=== PATIENT | female | born 1945 | race Caucasian/White ===

== ENCOUNTER → 2016-04-30 | Outpatient (CLI) | payer OTHER ==
[~2016-04-30] VITALS: Ht 160 cm; Wt 56.2 kg
[~2016-04-30] MED LIST: ADDERALL; ADDERALL 10 MG10 MG PO; ADDERALL 20 MG20 M1 PO; ATIVAN1 MG PO; BUTRANS1 EAC2 TD; BUTRANS1 EAC3 TD; BYSTOLIC 5 MG5 M1 PO; CALCIUM 500 +1 EAC5; CLONAZEPAM 0.50.5 M1 PO; COQ1050 MG; DILAUDID 2 MG TA2 MG PO; DOMPERIDONE PO; GABAPENTIN 100100 MG PO; HYDRALAZINE 2525 MG PO; LASIX 20 MG TAB20 MG; LEVAQUIN 500 M500 M2 PO; LORAZEPAM 1 MG T1 M1 PO; METOCLOPRAMIDE10 MG PO; MOBIC15 MG PO; MOBIC7.5 MG PO; MULTIVITAMINS; OMEGA-31000 M1; ONDANSETRON HCL4 M2 PO; PANTOPRAZOLE SO40 M1 PO; PILOCARPINE HCL5 M1 PO; PRILOSEC 20 MG20 MG PO; PROTONIX40 M1 PO; REGLAN 10 MG TA10 MG PO; SUMATRIPTAN SU100 MG PO; TIZANIDINE HCL 22 M1 PO; TOPAMAX 25 MG T25 M1 PO; TOPAMAX50 MG PO; VITAMIN D1000 UNI1; VOLTAREN GEL 1100 G2 TOP; WELLBUTRIN SR100 MG PO; WELLBUTRIN SR150 MG PO; XANAX1 MG PO; ZANAFLEX4 MG PO
--- NOTE | ~2016-04-30 | HPC ---
[facility] [place] [address] [address] [place] [address] PAIN MANAGEMENT CONSULTATION Name: TEDKEN FLORESCE Room #: REG [facility] John#: [id number] Admission: 04/30/16 Attend Phys: Gordy Horn DO Discharge: Date of : 45 Report #: [id number] THIS REPORT FOR: //name// CC: Ming Horn The patient is a 70-year-old female well known to pain clinic, typically treated for cervical radiculopathy status post decompressive laminectomy and neuropathic pain requiring complex medication management, history of left shoulder pain at last office visit 03/19/2016, recent diagnosis of sacral insufficiency fracture. Returns to pain clinic today. She notes pain is improving. She started doing water therapy for core stabilization and improved functional status, status post sacral insufficiency fracture. Status post left shoulder arthroplasty. Range of motion remains modestly diminished. Rates the pain about 6/10. Taking hydromorphone 2 mg 2 or 3 a day, but struggling a little with physical therapy. Stopped meloxicam due to gastroesophageal reflux. Tizanidine does seem to be helpful for spasm. We reviewed the fact that opiate medications are being used to provide analgesia adequate to support activities of daily living, not attempting to achieve a specific pain score on the 0-10 Visual Analog Scale. The current opiate medications are providing sufficient analgesia to allow the patient to participate in activities of daily living. The patient is not exhibiting any aberrant behavior suggestive of drug diversion. The patient is not having any adverse reactions to medications. The patient is not suffering from daytime somnolence or mental acuity changes. The patient is managing opiate-induced constipation with appropriate fljt-stg-npyaqfw agents and dietary considerations. The patient was counseled on concern for caution with operating a motor vehicle while using opiate medications. A physical exam was performed and the patient's functional status was evaluated. All patients with back pain were advised against the bed rest greater than 4 days and were advised to return to normal activities. Pain score assessment was noted and the treatment plan was reviewed with the patient. All current medications, both prescribed and OTC were reviewed and reconciled on the electronic medical record. Tobacco screening was accomplished and smoking cessation was advised when indicated. BMI was noted and diet/exercise modification was recommended for all patients following outside normal parameters. I reviewed with the patient today their responsibilities to safeguard prescription medications, reviewed their responsibility to utilize medications only as prescribed by the physician. They are to seek and receive pain medications only from 1 physician group ( [facility]). They are to use 1 pharmacy and keep the clinic informed if they change pharmacies. Their responsibilities include making followup visits in a timely fashion and to avoid [address] [address] PAIN MANAGEMENT CONSULTATION Name: KEN JEAN Room #: REG NASIR Lopez#: [id number] Admission: 04/30/16 Attend Phys: Gordy Horn DO Discharge: Date of : 45 Report #: [id number] abrupt discontinuation of medication usage. Their responsibilities further include bringing their medications (bottles from the pharmacy with residual pills) to the visit for possible confirmation of pill counts and the patient understands it is their responsibility to submit to random drug screens to ensure both that the medications prescribed are present, and that no other controlled substances are present. All prescriptions provided today were generated electronically. PHYSICAL EXAMINATION: Shows 70-year-old female, BMI is 22 kilograms per meter squared. Blood pressure is modestly elevated 165/99, pulse 83, respirations 20. The patient admits to forgetting to take her antihypertensive this morning (hydralazine 25 mg b.i.d.) Rises from the chair using armrest. Gait is modestly antalgic. Diffuse tenderness across the right low back. No discrete trigger points noted. Again, diminished range of motion of the left shoulder. ASSESSMENT: Symptomatic cervical radiculopathy. She is status post lumbar decompressive laminectomy, neuropathic pain requiring complex medication management, left shoulder degenerative joint disease, status post total shoulder arthroplasty and recent sacral insufficiency fracture though this appears to be resolving, requiring complex medication management. RECOMMENDATION: Continue hydromorphone 2 mg, will increase from 75-90 tablets for the next 4 weeks. I did generate a prescription to be released in 4 weeks, dropping back to 75 hydromorphone 2 mg tablets. Discharged in good and stable condition. <ELECTRONICALLY SIGNED> By: Gordy Horn DO 05/04/16 1228 [id number] Gordy Horn DO /nt
[2016-04-30 11:20] VITALS: BP 165/99
== END | disposition home or self-care (01) ==
LOC: PAIN 07:14
DX: M54.12 Radiculopathy, cervical region (principal); M19.012 Primary osteoarthritis, left shoulder; Z98.890 Other specified postprocedural states; Z98.1 Arthrodesis status

== ENCOUNTER → 2016-07-20 | Outpatient (CLI) | payer OTHER ==
[~2016-07-20] VITALS: Ht 160 cm; Wt 55.8 kg
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
[2016-07-20 08:31] VITALS: BP 152/84
== END | disposition home or self-care (01) ==
LOC: PAIN 06:47
DX: M54.16 Radiculopathy, lumbar region (principal); G89.29 Other chronic pain; M81.0 Age-related osteoporosis without current pathological fracture; Z98.890 Other specified postprocedural states; Z96.612 Presence of left artificial shoulder joint

== ENCOUNTER → 2016-08-17 | Outpatient (CLI) | payer OTHER ==
[~2016-08-17] VITALS: Ht 162.6 cm; Wt 56.1 kg
--- NOTE | ~2016-08-17 | HPC ---
[facility] [address] [place] [address] PAIN MANAGEMENT CONSULTATION Name: KEN JEAN Room #: REG [facility] John#: [id number] Admission: 08/17/16 Attend Phys: Gordy Horn DO Discharge: Date of : 45 Report #: [id number] THIS REPORT FOR: //name// CC: Ming Horn DATE OF SERVICE: 08/17/2016 The patient is a very pleasant 71-year-old female being treated for lumbar radiculopathy status post decompressive laminectomy, chronic pain syndrome requiring complex medication management. Status post left total shoulder arthroplasty with sacral fracture, this past winter. Returns to pain clinic today noting pain medications are providing sufficient analgesia to participate in activities of daily living. Urine drug screen 07/20/2016 on last visit was positive for most of her medications, no hydromorphone was noted. She uses 2 mg tablet 75 tablets for 30 days, she takes 0-4 a day. She has been using this appropriately. She has not had one for about 48 hours prior to last UDS. Today, she notes pain, rates 4/10, primarily low back, neck. She states pain has been present "since 1955." She does note that with the fall beginning the last winter and pelvic fracture, pain had been more problematic. She is actually doing remarkably well. She would like to start to do a little more PT again for primarily some right groin subjective weakness and pain. PHYSICAL EXAMINATION: Otherwise unchanged 71-year-old female, BMI is 29.2 kilograms per meter squared. Vital signs stable. Diagnosed with osteopenia. She is using Prolia. Rises from chair easily. Gait is tandem, but diffuse tenderness in the right groin, slight decreased right hip flexion strength. ASSESSMENT: Symptomatic lumbar radiculopathy status post decompressive laminectomy, chronic pain syndrome requiring complex medication management status post sacral fracture last winter and status post left total shoulder arthroplasty greater than a year ago, ongoing pain concerns, requiring complex medication management. RECOMMENDATION: Continue hydromorphone 2 mg 1 tablet 2-3 times a day, limit 75 tablets for 30 days, tizanidine 4 mg b.i.d. for spasm, meloxicam 7.5 mg b.i.d., but to be used on a "nondaily" basis. We will write for physical therapy, 2 visits for 4 weeks for pelvic and right groin pain. [address] [address] PAIN MANAGEMENT CONSULTATION Name: KEN JEAN MERNA Room #: REG [facility] RamírezRamírez#: [id number] Admission: 08/17/16 Attend Phys: Gordy Horn DO Discharge: Date of : 45 Report #: [id number] DIAGNOSES: Status post multiple fractures. Discharged in good and stable condition. Follow up in 2 months for reevaluation. <ELECTRONICALLY SIGNED> By: Gordy Horn DO 08/19/16 0758 [id number] Gordy Horn DO /juma
[2016-08-17 10:42] VITALS: BP 139/71
== END ==
LOC: PAIN 06:50
DX: M54.16 Radiculopathy, lumbar region (principal); G89.4 Chronic pain syndrome; I10 Essential (primary) hypertension; F32.9 Major depressive disorder, single episode, unspecified; Z88.8 Allergy status to other drugs, medicaments and biological substances

== ENCOUNTER → 2016-10-15 | Outpatient (CLI) | payer OTHER ==
[~2016-10-15] VITALS: Ht 160 cm; Wt 55.9 kg
[~2016-10-15] MED LIST changes: +LINZESS145 MCG PO
[2016-10-15 12:59] VITALS: BP 126/84
== END | disposition home or self-care (01) ==
LOC: PAIN 06:51
DX: G62.9 Polyneuropathy, unspecified (principal)

== ENCOUNTER → 2016-12-04 | Outpatient (CLI) | payer OTHER ==
[~2016-12-04] VITALS: Ht 160 cm; Wt 54.9 kg
[~2016-12-04] MED LIST changes: +SEROQUEL 50 MG50 M1 PO
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
[2016-12-04 14:50] VITALS: BP 145/85
== END ==
LOC: PAIN 14:25
DX: M54.12 Radiculopathy, cervical region (principal); I10 Essential (primary) hypertension; Z79.899 Other long term (current) drug therapy; Z88.8 Allergy status to other drugs, medicaments and biological substances; Z79.891 Long term (current) use of opiate analgesic

== ENCOUNTER → 2017-01-01 | Outpatient (CLI) | payer OTHER ==
[~2017-01-01] VITALS: Ht 157.5 cm; Wt 56.9 kg
[~2017-01-01] MED LIST changes: +CELEXA10 MG PO
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
[2017-01-01 11:42] VITALS: BP 159/108
== END | disposition home or self-care (01) ==
LOC: PAIN 07:18
DX: Z76.0 Encounter for issue of repeat prescription (principal); G89.4 Chronic pain syndrome; M79.2 Neuralgia and neuritis, unspecified; F32.89 Other specified depressive episodes; Z98.890 Other specified postprocedural states; Z96.611 Presence of right artificial shoulder joint; Z79.891 Long term (current) use of opiate analgesic; Z88.8 Allergy status to other drugs, medicaments and biological substances; G43.909 Migraine, unspecified, not intractable, without status migrainosus